=== PATIENT | male | born 1960 | race Caucasian/White ===

== ENCOUNTER 2021-10-06 16:21 | Inpatient (IN) | payer MEDICARE ==
[~2021-10-06] VITALS: Ht 170.2 cm; Wt 73.2 kg
[2021-10-06] MEDS ORDERED: TIZANIDINE HCL4 MG PO (16:56)
[2021-10-06] MEDS ORDERED: CILOSTAZOL100 MG PO (16:57)
[2021-10-06] MEDS ORDERED: NOVOLOG 10100 UNITS/ SQ (17:01)
[2021-10-06] MEDS ORDERED: CITALOPRAM HBR20 MG PO (17:05)
[2021-10-06] MEDS ORDERED: GABAPENTIN800 MG PO (17:10)
[2021-10-06] MEDS ORDERED: PROVENTIL HFA6.7 GM INH (17:15)
[2021-10-06] MEDS ORDERED: METOPROLOL TART50 MG PO (17:16)
[2021-10-06] MEDS ORDERED: CLOPIDOGREL75 MG PO (17:17)
[2021-10-06] MEDS ORDERED: ATORVASTATIN CA80 MG PO (17:17)
[2021-10-06] MEDS ORDERED: FUROSEMIDE20 MG PO (17:18)
[2021-10-06] MEDS ORDERED: ALBUTEROL2.5 MG/3 M INH (17:22)
[2021-10-06] MEDS ORDERED: LISINOPRIL40 MG PO (17:23)
[2021-10-06] MEDS ORDERED: PREDNISONE2.5 MG PO (17:26)
[2021-10-06] MEDS ORDERED: PROTONIX40 MG PO (17:27)
[2021-10-06] MEDS ORDERED: TRELEGY ELLIPT1 EACH INH (17:28)
[2021-10-06 18:09] LABS: HEMOGLOBIN 12.2 gm/dl (14.0-17.5); RED BLOOD COUNT 4.91 M/UL (4.20-5.50); WHITE BLOOD COUNT 6.9 K/UL (4.5-11.0)
[2021-10-06 19:51] LABS: BUN/CREATININE RATIO 15 (0-10)
[2021-10-07 05:50] LABS: HEMOGLOBIN 11.7 gm/dl (14.0-17.5); RED BLOOD COUNT 4.69 M/UL (4.20-5.50)
[2021-10-07 06:14] LABS: BUN/CREATININE RATIO 19 (0-10)
[2021-10-07] MEDS ORDERED: TRAMADOL HCL50 MG PO (15:36)
[2021-10-07] MEDS ORDERED: ADVANCED CALCI1 EACH PO (15:37)
[2021-10-08 08:30] LABS: WHITE BLOOD COUNT 7.2 K/UL (4.5-11.0)
[2021-10-08 08:33] LABS: HEMOGLOBIN 13.7 gm/dl (14.0-17.5); RED BLOOD COUNT 5.51 M/UL (4.20-5.50)
[2021-10-08 09:20] LABS: BUN/CREATININE RATIO 26 (0-10)
[2021-10-08] MEDS ORDERED: ASPIRIN EC81 MG PO (16:15)
[2021-10-08] MEDS ORDERED: LEVOFLOXACIN500 MG PO (17:20)
[2021-10-09 02:22] LABS: HEMOGLOBIN 12.9 gm/dl (14.0-17.5); RED BLOOD COUNT 5.17 M/UL (4.20-5.50)
[2021-10-09 02:23] LABS: WHITE BLOOD COUNT 4.8 K/UL (4.5-11.0)
[2021-10-09 02:41] LABS: BUN/CREATININE RATIO 26 (0-10)
--- NOTE | 2021-10-09 09:10 | NUR ---
bedside julia performed by dr. guerrero with nevaeh aguilera [facility] assisting time in: 8:59, time out 9:05. no sedation [employer] principal per md. patient tolerated well.
[2021-10-10 01:55] LABS: HEMOGLOBIN 12.5 gm/dl (14.0-17.5); RED BLOOD COUNT 5.06 M/UL (4.20-5.50); WHITE BLOOD COUNT 5.9 K/UL (4.5-11.0)
[2021-10-10 02:30] LABS: BUN/CREATININE RATIO 32 (0-10)
== END 2021-10-10 15:44 | disposition home or self-care (01) | DRG 280 ==
LOC: PROG CARE 16:21 → EDBD 16:21 → PROG CARE 10-07 11:58
PROVIDERS: Internal Medicine; ADMIT Internal Medicine
PROC: B24BZZZ Ultrasonography of Heart with Aorta (ICD-10-PCS; principal; 2021-10-07)
PROC: 4A023N7 Measurement of Cardiac Sampling and Pressure, Left Heart, Percutaneous Approach (ICD-10-PCS; 2021-10-08)
PROC: B2111ZZ Fluoroscopy of Multiple Coronary Arteries using Low Osmolar Contrast (ICD-10-PCS; 2021-10-08)
PROC: B24BZZ4 Ultrasonography of Heart with Aorta, Transesophageal (ICD-10-PCS; 2021-10-09)
DX: I21.4 Non-ST elevation (NSTEMI) myocardial infarction (principal); J96.21 Acute and chronic respiratory failure with hypoxia; J18.9 Pneumonia, unspecified organism; J44.0 Chronic obstructive pulmonary disease with (acute) lower respiratory infection; J44.1 Chronic obstructive pulmonary disease with (acute) exacerbation; Z20.822 Contact with and (suspected) exposure to COVID-19; J60 Coalworker's pneumoconiosis; R01.1 Cardiac murmur, unspecified; E11.51 Type 2 diabetes mellitus with diabetic peripheral angiopathy without gangrene; I73.9 Peripheral vascular disease, unspecified; I08.3 Combined rheumatic disorders of mitral, aortic and tricuspid valves; Z99.81 Dependence on supplemental oxygen; Z79.4 Long term (current) use of insulin; Z95.828 Presence of other vascular implants and grafts; Z79.899 Other long term (current) drug therapy
CPT/HCPCS: ECHO; 36415; 71045; 80048; 80053; 80061; 82550; 82553; 82962; 83036; 83735; 83880; 84484; 85025; 85027; 85379; 85610; 85730; 87040; 93005; 93306; 93312; 93320; 94640; 94664; 94760; 96365; 96366; 96375; 99152; C1769; C1887; C1894; G0378; G0379; J0696; J1644; J1650; J1940; J2250; J2405; J2550; J3010; J7040; Q9967; U0002